=== PATIENT | female | born 1995 | race Hispanic/Latino ===

== ENCOUNTER → 2019-06-22 | Outpatient (CLI) | payer OTHER ==
--- NOTE | 2019-06-22 13:48 | Diagnostic Imaging Report ---
Exam: Pelvic ultrasound. History: PCOS Comparison: None Findings: Transabdominal sonographic evaluation of the pelvis. The uterus measures 6.5 x 3.0 x 4.6 cm. No fibroids identified. Endometrial stripe thickness is 5 millimeters. The right ovary measures 4.4 x 2.2 x 2.1 cm and appears unremarkable. The left ovary measures 3.8 x 1.7 x 2.3 cm and appears unremarkable. No free fluid in the pelvis. Impression: Unremarkable pelvic ultrasound. Signed by: Luke Chavez MD on 06/22/2019 1:45 PM
== END ==
LOC: US 12:10
PROVIDERS: ATTEND Obstetrics & Gynecology Gynecology
DX: N92.6 Irregular menstruation, unspecified (principal)
CPT/HCPCS: 76856